=== PATIENT | female | born 1965 | race Hispanic/Latino ===

== ENCOUNTER 2017-04-01 23:47 | Emergency (ER) | payer OTHER ==
[~2017-04-01] VITALS: Ht 152.4 cm; Wt 59.1 kg
--- NOTE | 2017-04-01 23:52 | ED.REPORT ---
HPI-Chest Pain 40 and Over Date of Service Apr 01, 2017 ED Provider: González Britton MD Pt is a 51 y/o female with a history of DM who presents to the ED via EMS c/o intermittent, sharp colic pain that radiates to her back onset this evening. Additional symptoms include nausea and back pain that only comes with the episodes of colic pain. She denies fever, chills, vomiting, or having similar symptoms in the past. Nursing Notes Stated Complaint: CHEST/ BACK PAIN Nursing Notes Reviewed: Yes Allergies: Coded Allergies: No Known Allergies (Unverified , 04/02/17) Scheduled Omeprazole (Omeprazole) 20 Mg Capsule. 20 MG PO BID General Time Seen by MD: 23:52 Chief Complaint Other (Colic pain) Hx Obtained From: Patient, Daughter, Irrigation Supervisor (daughter interpreted ) Arrived By: Ambulance Sudden in Onset?: Yes Symptom Duration: Intermittent Quality: Painful, Sharp Radiation: : Back Severity: Current: Mild Severity: Maximum: Severe Recent Healthcare: No recent doctor visit, No recent hospitalization Similar Sx Previous: No Past Medical History Past Medical History Reports: Diabetes mellitus Past Surgical History Denies Review of Systems Constitutional: Denies: Chills, Fever GI: Reports: Abdominal pain (colic pain), Nausea, Denies: Vomiting Musculoskeletal: Reports: Back pain Complete sys rev & neg: except as marked. Physical Exam Initial Vital Signs Vital Signs (First) Date Time Temp Pulse Resp B/P Pulse Ox O2 Delivery O2 Flow Rate FiO2 04/01/17 23:53 36.9 64 22 175/92 100 04/02/17 02:43 Room Air Initial VS: Reviewed, Vital signs abnormal Head / Eyes: Atraumatic, Normocephalic Neck: Supple, Full range of motion Extremities: Vascular intact, Neuro intact, No swelling, No tenderness Skin: Warm, Dry, No cyanosis Neurologic: Alert, Oriented, Nonfocal Psychiatric: Mood/affect normal, Behavior normal, Normal thought content General/Constitutional: Awake, Alert Respiratory / Chest: Atraumatic, Breath sounds NL, Breath sounds = bilat, No respiratory distress Cardiovascular: Heart rate NL, Regular rhythm, Heart sounds NL Abdomen: Soft, Non-tender Interpretation & Diagnostics US ABDOMEN: 1. Gallbladder is within normal limits. No biliary dilation. 2. Mildly enlarged fatty liver. Lab Results Interpretation Result Diagram: 04/01/17 4788 04/01/17 2359 Test 04/01/17 23:59 04/02/17 02:20 White Blood Count 12.4th/mm3 (3.8-10.1) Red Blood Count 4.53mil/mm3 (3.90-5.20) Hemoglobin 14.4g/dL (12.0-15.6) Hematocrit 42.0% (35.0-46.0) Mean Corpuscular Volume 92.7fL (81-100) Mean Corpuscular Hemoglobin 31.8pg (27.0-35.0) Mean Corpuscular Hemoglobin Concent 34.3% (32.0-37.0) Red Cell Distribution Width 12.4% (12.3-15.4) Platelet Count 308bil/L (150-400) Neutrophils (%) (Auto) 51.6% (40-74) Lymphocytes (%) (Auto) 34.8% (14-46) Monocytes (%) (Auto) 9.6% (4-12) Eosinophils (%) (Auto) 3.3% (0-5) Basophils (%) (Auto) 0.3% (0-3) Sodium Level 139mEq/L (134-144) Potassium Level 3.8mEq/L (3.5-5.2) Chloride Level 101mEq/L (97-108) Carbon Dioxide Level 23mmol/L (18-29) Blood Urea Nitrogen 17mg/dL (6-24) Creatinine 0.70mg/dL (0.57-1.00) Estimat Glomerular Filtration Rate 126mL/min (>59) Glucose Level 104mg/dL (60-99) Calcium Level 8.9mg/dL (8.5-10.1) Magnesium Level 2.3mg/dL (1.6-2.6) Total Bilirubin 0.2mg/dL (0.0-1.2) Aspartate Amino Transf (AST/SGOT) 32U/L (0-50) Alanine Aminotransferase (ALT/SGPT) 38U/L (0-32) Alkaline Phosphatase 148U/L (25-150) Troponin T 0.010ug/L (0.0-0.011) Total Protein 8.4g/dL (6.4-8.4) Albumin 4.4g/dL (3.4-5.0) Urine Color Yellow (YELLOW) Urine Appearance Clear (CLEAR,HAZY) Urine pH 5.5 (5.0-8.0) Urine Specific [place] 1.025 (1.003-1.035) Urine Protein Negativemg/dL (NEG,TRACE) Urine Glucose (UA) Negativemg/dL (NEGATIVE) Urine Ketones Negativemg/dL (NEGATIVE) Urine Occult Blood Negative (NEGATIVE) Urine Nitrite Negative (NEGATIVE) Urine Bilirubin Negative (NEGATIVE) Urine Urobilinogen Normalmg/dL (NORMAL) Urine Leukocyte Esterase Trace (NEGATIVE) Urine RBC 0-2/hpf (0-2) Urine WBC 0-5/hpf (0-5) Urine Epithelial Cells Moderate/hpf (NONE-MOD) Urine Crystals None seen (NONE SEEN) Urine Bacteria Few/hpf (NONE-FEW) Urine Hyaline Casts None/lpf (NONE) Urine Granular Casts None seen (NONE SEEN) Urine Waxy Casts None seen (NONE SEEN) Urine Red Blood Cell Casts None seen (NONE SEEN) Urine White Blood Cell Casts None seen (NONE SEEN) Urine Mucus Present (None Seen) Urine Trichomonas None seen (NONE SEEN) Urine Yeast None (NONE SEEN) Urinalysis Comment None Urine Culture Reflexed Indicated Lab Results Interpretation: Elevated white blood count, elevated ALT ECG Interpretation ECG Interpretation: Sinus rhythm, rate 64 ST elevation, probable normal early repol pattern Time: 23:56 Interpreted by: ED physician X-Ray Chest Interpretation Chest Xray Interpretation: Impression: normal View: Portable, 1 view Interpretation / Wet Read by: Wet read ED physician Re-Eval/Medical Decision Med Decision/Clinical Course 51-year-old female with crampy abdominal pain with radiation to her back. Ultrasound is negative for gallbladder disease. Labs are essentially normal. She is reviewed and referred back to her primary provider for further evaluation and treatment. She will maximize antacid treatment for the time being. Return to emergency room if there is significant worsening. Source of Hx: Old records Time of Eval: 02:02 Patient Status: Condition improved Re-Evaluation/Progress Note: Pt rechecked. Discussed results of ultrasound and the need for a urine sample. Discussed plan for discharge. Patient understands and agrees with plan. F/U instructions and RTER warnings given. All questions addressed at this time. Counseled Regarding: Diagnosis, Lab results, Need for follow-up, When/why to return to ED Discharge & Departure Primary Impression: Epigastric pain Disposition: Home Discharge Condition All VS Reviewed: Yes Condition: Stable Patient Instructions: Epigastric Pain (ED) Additional Instructions: No serious cause of the pain is found. I suspect that it may be due to acid indigestion and would recommend maximizing antacid therapy with omeprazole 20 mg by mouth twice a day, prescription sent. Follow-up with her regular doctor as needed for persistent symptoms. Referrals: Huan Mejia MD (PCP) Scribe Attestation Portions of this note were transcribed by Anabel Knutson. I, Dr. Britton, personally performed the history, physical exam and medical decision-making; I reviewed and confirmed the accuracy of the information in the transcribed note. copies to: Huan Mejia MD, Howard L MD Apr 01, 2017 23:52 Anabel Knutson Apr 02, 2017 00:00
[2017-04-01 23:53] VITALS: BP 175/92; PULSE 64; RESP 22; O2SAT 100
[2017-04-02] MEDS ORDERED: Ondansetron 2 mg/mL 2 mL Inj IVPUSH PRN
[2017-04-02 00:07] LABS: BASOPHILS % (AUTO) 0.3 % (0-3); EOSINOPHILS % (AUTO) 3.3 % (0-5); MONOCYTES % (AUTO) 9.6 % (4-12); Mean Corpuscular Hemoglobin 31.8 pg (27.0-35.0); Mean Corpuscular Volume 92.7 fL (81-100); NEUTROPHILS % (AUTO) 51.6 % (40-74); Platelet Count 308 bil/L (150-400)
[2017-04-02] MEDS: HYDROmorphone 0.5 mg/0.5 mL iSecure Syringe IVPUSH PRN ×3 (00:12→02:28)
[2017-04-02 00:50] LABS: Magnesium 2.3 mg/dL (1.6-2.6); TROPONIN T 0.01 ug/L (0.0-0.011)
[2017-04-02 02:30] LABS: APPEARANCE,URINE CLEAR (CLEAR,HAZY); COLOR,URINE YELLOW (YELLOW); OCCULT BLOOD,URINE NEGATIVE (NEGATIVE); PH,URINE 5.5 (5.0-8.0); UROBILINOGEN,URINE NORMAL (NORMAL)
[2017-04-02 02:43] VITALS: BP 128/79; PULSE 69; RESP 16; O2SAT 98
[2017-04-02] MEDS ORDERED: OMEP20CA11 PO (03:00)
[2017-04-02 03:15] VITALS: BP 130/74; PULSE 63; RESP 15; O2SAT 98
--- NOTE | 2017-04-02 08:16 | DRSVH ---
PROCEDURE: US ABDOMEN INDICATIONS: RUQ abd pain TECHNIQUE: Real-time scanning was performed of the abdominal and retroperitoneal organs, with image documentatio n. COMPARISON: None. FINDINGS: Liver length: 16.46 cm Gallbladder Wall Thickness: 2.30 mm CHD: - CBD: - Spleen length: 9.15 cm Right kidney length: 11.08 cm Left kidney length: 10.89 cm Aorta(Proximal): 2.07 cm Aorta(Mid): 1.57 cm Aorta(Distal): 1.38 cm RCIA: 8.20 mm LCIA: 9.10 mm Liver: Liver is normal in size and demonstrates diffuse increased echotexture. Gallbladder: No gallstones. No gallbladder wall thickening, pericholecystic fluid or sonographic Mu rphy's sign. Biliary ducts: Intrahepatic bile ducts are non-dilated. Extrahepatic bile duct caliber is not visua lized. Normal is 6-7 mm or less in diameter, or 10 mm or less post-cholecystectomy. Pancreas: Visualized portions of the pancreas are sonographically normal. Spleen: Spleen is normal in size and homogeneous in echotexture. Kidneys: Kidneys are normal in size and echotexture. No hydronephrosis or nephrolithiasis. No josé d masses. Aorta: Visualized aorta is normal in caliber at less than 3 cm. Iliacs: Proximal common iliac arteries are normal in caliber at less than 2.5 cm. IVC: Intrahepatic inferior vena cava is patent. Miscellaneous: No free abdominal fluid. IMPRESSION: 1. Diffusely increased hepatic echotexture. This finding is most likely secondary to hepatic fatty i nfiltration although other hepatocellular disease may have a similar appearance. Recommend clinical c orrelation. 2. Extrahepatic biliary duct is not visualized. If there is clinical evidence for biliary obstruction , MRCP or ERCP is suggested. 3. Normal gallbladder. No gallstones. No significant discrepancy with the foreign service teacher radiology preliminary report. Dictated by: Wes Michelle M.D. on 04/02/2017 at 8:12 Approved by: Wes Michelle M.D. on 04/02/2017 at 8:14
--- NOTE | 2017-04-02 10:06 | DRSVH ---
PROCEDURE: X-RAY CHEST ONE VIEW, PORTABLE ([id number]) INDICATIONS: chest pain TECHNIQUE: One view of the chest was acquired. COMPARISON: None. FINDINGS: Surgical changes and devices: None. Lungs and pleura: An incomplete inspiratory result is noted, causing a crowded appearance to the shelbi g markings. No focal infiltrates are seen. No pneumothorax or significant pleural effusions are see n. Mediastinum: Mediastinal contours appear normal. Heart size is normal. Bones and chest wall: No suspicious bony lesions. Overlying soft tissues appear unremarkable. IMPRESSION: Portable chest within normal limits. Dictated by: Hector Andrade M.D. on 04/02/2017 at 10:04 Approved by: Hector Andrade M.D. on 04/02/2017 at 10:04
== END 2017-04-02 03:23 | disposition home or self-care (01) ==
LOC: SED 23:47 → EDBD 23:47 → SED 04-02 03:23
DX: R10.13 Epigastric pain (principal); M54.9 Dorsalgia, unspecified; R11.0 Nausea; E11.9 Type 2 diabetes mellitus without complications
CPT/HCPCS: 36415; 71010; 76700; 80053; 81000; 82948; 83735; 84484; 85025; 87086; 93005; 96374; 96375; 96376; 99285; J1170; J2405